=== PATIENT | female | born 1990 | race Caucasian/White ===

== ENCOUNTER 2024-12-25 21:19 | Inpatient (IN) | payer OTHER, SELFPAY ==
[2024-12-25 21:38] VITALS: BP 140/99; PULSE 124; PULSE 81; RESP 16; TEMP 37; O2SAT 99; BMI 26.6
--- NOTE | 2024-12-25 21:51 | PC.NURSE ---
boyfriend phone [phone], family welfare social work professor duran [phone]
[2024-12-25 22:14] LABS: Basophils Absolute Auto 0.1 X10*3/uL (0.0-0.2); Basophils Percent Auto 0.5 % (0-2); Eosinophils Absolute Auto 0.2 X10*3/uL (0.0-0.4); Eosinophils Percent Auto 1.7 % (0-4); Hematocrit 43.4 % (37.0-47.0); Hemoglobin 14.7 g/dl (12.0-16.0); Imm Gran Abs Auto 0.04 X10*3/uL (0.00-0.03); Imm Gran Pct Auto 0.4 % (0.0-0.4); Lymphocytes Absolute Auto 3.4 X10*3/uL (1.2-4.9); Lymphocytes Percent Auto 36.3 % (20-40); MANUAL DIFF FLAG NO; Mean Corpuscular HGB Conc 33.9 g/dl (31.0-35.0); Mean Corpuscular Hemoglobin 30.5 pg (27.0-33.0); Mean Platelet Volume 10.6 fL (9.4-12.3); Monocytes Absolute Auto 0.5 X10*3/uL (0.1-1.2); Monocytes Percent Auto 5.6 % (2-11); Neutrophils Absolute Auto 5.1 x10*3/uL (2.0-8.3); Neutrophils Percent Auto 55.5 % (45-73); Platelet Count 351 X10*3/uL (160-400); Red Blood Count 4.82 X10*6/uL (4.20-5.50); Red Cell Distribution Width 12.5 % (11.0-16.0); White Blood Count 9.3 X10*3/uL (4.8-10.8)
[2024-12-25] MEDS: LORazepam 1 MG TABLET 2 MG PO (22:16)
--- NOTE | 2024-12-25 22:25 | MHC.EDTECH ---
pt arrived very upset, sobbing. pt resisted changeover and stated that she should not be here and wanted to leave. pt eventually agreed to changeover and was upset that she would not have access to belongings. patient remained very upset, sobbing, but complied with labs.
--- NOTE | 2024-12-25 22:25 | PC.NURSE ---
father phone number [phone]
[2024-12-25 22:30] LABS: Acetaminophen LAB < 3 mcg/mL (<30); Albumin Level 4.6 g/dL (3.5-5.0); Alkaline Phosphatase 72 U/L (39-117); Anion Gap 15 (12-20); Aspartate Amino Transferase 28 U/L (5-31); Bilirubin Total 0.2 mg/dL (0.0-1.0); Blood Urea Nitrogen 9 mg/dL (9-16); Calcium 10.1 mg/dL (8.4-10.2); Carbon Dioxide 21 mmol/L (22-29); Chloride 108 mmol/L (96-108); Estimated Glomerular Filt Rate > 60; Ethanol 115 mg/dL; Glucose Random 91 mg/dL (60-115); Potassium 4.1 mmol/L (3.3-5.1); Salicylate < 5.0 mg/dL (15-30); Sodium 140 mmol/L (135-145); Total Protein 8.6 g/dL (6.5-8.0)
--- NOTE | 2024-12-25 22:31 | MHC.EDTECH ---
patient belongings in locker 2
[2024-12-25 22:41] LABS: Alanine Aminotransferase 28 U/L (0-31)
--- NOTE | 2024-12-25 23:11 | PC.NURSE ---
patient was served withe emergent restraining order by police.
[2024-12-25 23:27] LABS: Appearance Urine Clear; Color Urine Yellow; Glucose Urine UA Negative (Negative); Leukocyte Esterase Urine Trace (Negative); Nitrite Urine Negative (Negative); Specific Gravity - Urine <= 1.005 (1.005-1.025); UMIC TRIGGER UA YES; Urine Blood Negative (Negative); Urine Ketones Negative (Negative); Urine Protein Negative (Neg-Trace)
[2024-12-25 23:28] LABS: UPreg QC Valid YES; Urine Pregnancy NEGATIVE (NEGATIVE)
[2024-12-25 23:32] LABS: Bacteria Urine None Seen (None Seen); Hyaline Casts Urine 0-2 /LPF (0-2); RBC Urine 0-2 /HPF (0-2); WBC Urine 0-5 /HPF (0-5)
[2024-12-25 23:39] LABS: Amphetamine Screen Urine Not Detected (Not Detect); Barbiturates, Urine Not Detected (Not Detect); Benzodiazepines Screen Urine Not Detected (Not Detect); Buprenorphine Scr Not Detected (Not Detect); Cannabinoid Screen Urine Not Detected (Not Detect); Cocaine Screen Urine Not Detected (Not Detect); Fentanyl, urine Not Detected (Not Detect); Methadone Screen, Urine Not Detected (Not Detect); Opiate Screen Urine Not Detected (Not Detect); Oxycodone Screen Urine Not Detected (Not Detect); Phencyclidine Screen Urine Not Detected (Not Detect)
--- NOTE | 2024-12-25 23:41 | MHC.EDTECH ---
pt lost custody of her baby child in the restraining order and states that she has nothing to live for without her children. Pt later stated that she needs 'a bullet to the head' when asked what she needed in that moment.
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
--- NOTE | 2024-12-26 07:17 | PC.NURSE ---
Assumed care of patient at 0645, patient appears to be anxious, on phone very tearful at this time. Patient occasionally yelling about an emergency restraining order. Continue plan of care for CARE team melanie
[2024-12-26] MEDS: Nicotine Polacrilex 2 MG GUM 4 MG BUCCAL ×4 (07:31→21:42)
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
[2024-12-26 07:37] VITALS: BP 145/82; PULSE 103; RESP 20; TEMP 36.6; O2SAT 97
[2024-12-26] MEDS: LORazepam 1 MG TABLET 2 MG PO ×2 (07:43→15:19)
[2024-12-26] MEDS: hydrOXYzine HCL 50 MG TABLET PO (11:57)
--- NOTE | 2024-12-26 11:58 | PC.NURSE ---
pt spoke with care team, became acutely upset again, hyperventilating, crying. per DO Gutierrez Hydroxyzine 50g PO, administered without issue
--- NOTE | 2024-12-26 13:01 | MHC.CARE ---
Pt meets the criteria for IPLOC. Section 12a in chart. Provider in agreement.
--- NOTE | 2024-12-26 19:21 | PC.NURSE ---
pt friend called back [facility] [phone] pt sleeping unable to get authorization.
--- NOTE | 2024-12-26 20:31 | PC.NURSE ---
pt up walked with steady gait to bathroom.
--- NOTE | 2024-12-26 20:36 | PC.NURSE ---
pt states she is feeling anxiouse after just waking up. pt states she feels her heart racing. vitals taken 118/79 hr 78. skin pink warm and dry. pt had 2 people call for her and now she is on the phone calling them back.
[2024-12-26 20:38] VITALS: BP 118/79; PULSE 78; RESP 16; TEMP 36.3; O2SAT 100
--- NOTE | 2024-12-26 21:03 | PC.NURSE ---
pt still on the phone and has been crying and has stopped.
--- NOTE | 2024-12-26 21:23 | PC.NURSE ---
pt is on the phone crying and has been asked to keep her voice down once already so that the other pt can sleep.
--- NOTE | 2024-12-26 21:28 | PC.NURSE ---
pt has been told she has 5 more min on the phone. pt is crying out loud talking loud enough to keep the pt awake.
--- NOTE | 2024-12-26 21:48 | PC.NURSE ---
pt back in her room with a hs snack.
[2024-12-27 06:13] VITALS: BP 123/66; PULSE 70; RESP 16; TEMP 36.5; O2SAT 98
--- NOTE | 2024-12-27 07:08 | PC.NURSE ---
Assumed care of patient at 0645, patient appears to be in no apparent distress at this time, sleeping, respirations even and unlabored. Continue plan of care for inpatient bedsearch
[2024-12-27] MEDS: Nicotine Polacrilex 2 MG GUM 4 MG BUCCAL ×4 (09:10→20:36)
[2024-12-27] MEDS: LORazepam 1 MG TABLET 2 MG PO (09:35)
--- NOTE | 2024-12-27 12:10 | PHA.MEDREC ---
Addendum entered by Brittany Garnica [facility] 12/27/24 12:29: Pt applies new patch on Fridays, however does not have it one right now. Has not had on since 12/23/24. Addendum entered by Brittany Garnica [facility] 12/27/24 12:27: Reviewed by [facility] Original Note: Pharmacy Consult ? Medication Reconciliation Pharmacy has completed the medication reconciliation. Reviewed med rec done by nursing. Nurse confirmed patient does not take .
--- NOTE | 2024-12-27 14:02 | PC.NURSE ---
pt refused flu vaccine at this time
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
[2024-12-27] MEDS: Nicotine 21 MG PATCH.TD24 TRANSDERMA (14:50)
[2024-12-27 15:17] VITALS: BMI 26.1
[2024-12-27 15:18] VITALS: BP 136/73; PULSE 91; RESP 17; TEMP 36.3; O2SAT 98
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
[2024-12-27 20:00] VITALS: BP 118/78; PULSE 97; RESP 16; TEMP 36.6; O2SAT 100
[2024-12-27] MEDS: hydrOXYzine HCL 25 MG TABLET PO (20:33)
[2024-12-27] MEDS: traZODone HCL 50 MG TABLET PO ×2 (20:33→21:27)
[2024-12-27] MEDS: LORazepam 1 MG TABLET PO (20:33)
[2024-12-28 07:49] VITALS: BP 95/50; PULSE 72; RESP 16; TEMP 36.4; O2SAT 99
[2024-12-28] MEDS: Nicotine 21 MG PATCH.TD24 TRANSDERMA (08:14)
[2024-12-28] MEDS: Thiamine HCL 100 MG TABLET PO (08:15)
[2024-12-28] MEDS: Nicotine Polacrilex 2 MG GUM 4 MG BUCCAL ×4 (08:16→21:10)
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
[2024-12-28 11:30] VITALS: BP 135/86; PULSE 104; RESP 20; TEMP 37; O2SAT 98
[2024-12-28] MEDS: LORazepam 1 MG TABLET PO ×2 (11:36→16:56)
[2024-12-28 16:52] VITALS: BP 129/86; PULSE 96; RESP 16; TEMP 36.4; O2SAT 100
[2024-12-28 20:00] VITALS: BP 121/57; PULSE 92; RESP 16; TEMP 36.9; O2SAT 97
[2024-12-28] MEDS: traZODone HCL 50 MG TABLET PO ×2 (21:01→22:01)
[2024-12-28] MEDS: hydrOXYzine HCL 25 MG TABLET PO (21:01)
[2024-12-29 07:00] VITALS: BMI 26.1
[2024-12-29 07:55] VITALS: BP 104/55; PULSE 62; RESP 14; TEMP 36.4; O2SAT 96
[2024-12-29] MEDS: Nicotine 21 MG PATCH.TD24 TRANSDERMA ×2 (09:07→14:20)
[2024-12-29] MEDS: Thiamine HCL 100 MG TABLET PO (09:08)
[2024-12-29] MEDS: Nicotine Polacrilex 2 MG GUM 4 MG BUCCAL ×5 (09:12→21:28)
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
[2024-12-29] MEDS: hydrOXYzine HCL 25 MG TABLET PO (16:18)
[2024-12-29] MEDS: hydrOXYzine HCL 50 MG TABLET PO (18:17)
[2024-12-29 20:00] VITALS: BP 130/91; PULSE 96; TEMP 36.9; O2SAT 100
[2024-12-29] MEDS: traZODone HCL 50 MG TABLET PO ×2 (21:27→22:32)
[2024-12-30] MEDS: hydrOXYzine HCL 50 MG TABLET PO (06:40)
--- NOTE | 2024-12-30 06:48 | PC.NURSE ---
Cherri was served court papers regarding custody of 3 month old. Pt received 50 mg Hydroxyzine just prior to being served and 50 of Seroquel at 0655. Effects pending
[2024-12-30] MEDS: QUEtiapine Fumarate 50 MG TABLET PO (06:56)
[2024-12-30] MEDS: Nicotine 21 MG PATCH.TD24 TRANSDERMA (07:07)
[2024-12-30] MEDS: Nicotine Polacrilex 2 MG GUM 4 MG BUCCAL (07:07)
[2024-12-30 07:20] VITALS: BP 129/88; PULSE 103; RESP 16; TEMP 36.3; O2SAT 99
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
== END 2024-12-30 08:55 | disposition home or self-care (01) | DRG 755 ==
LOC: HO.ED 12-26 01:35 → HO.PADLT16 12-27 11:55
PROVIDERS: Admitting Provider Psychiatry & Neurology Psychiatry; Emergency Provider Emergency Medicine Emergency Medical Services; PCP Internal Medicine; Visit Provider Psychiatry & Neurology Psychiatry
DX: F43.25 Adjustment disorder with mixed disturbance of emotions and conduct (principal); R45.850 Homicidal ideations; F10.929 Alcohol use, unspecified with intoxication, unspecified; Y90.5 Blood alcohol level of 100-119 mg/100 ml; F43.10 Post-traumatic stress disorder, unspecified
CPT/HCPCS: 36415; 80053; 80143; 80179; 80307; 81001; 81025; 85025; 99285; S9485

== ENCOUNTER → 2024-12-27 11:52 | Outpatient (BNV) | payer OTHER, SELFPAY | PROVIDERS: Admitting Provider Psychiatry & Neurology Psychiatry; Emergency Provider Emergency Medicine Emergency Medical Services; PCP Internal Medicine; Visit Provider Psychiatry & Neurology Psychiatry | DX: F43.25 Adjustment disorder with mixed disturbance of emotions and conduct (principal); F10.90 Alcohol use, unspecified, uncomplicated | CPT/HCPCS: 90792; 99231; 99232; 99238 ==